=== PATIENT | female | born 1970 | race Caucasian/White ===

== ENCOUNTER 2022-03-08 19:13 | Emergency (ER) | payer MEDICAID, OTHER ==
[~2022-03-08] VITALS: Ht 162.6 cm; Wt 62.7 kg
[~2022-03-08 19:13] MED LIST: PREN-385 PO
[2022-03-08 19:49] VITALS: BP 160/91
--- NOTE | 2022-03-08 21:33 | NUR ---
ERMD EXAMINING PT
[2022-03-08] MEDS ORDERED: cefTRIAXone 1,000 MG in LIDOCAINE MPF 1% 2.1 ML IM ONE (22:10)
[2022-03-08] MEDS ORDERED: CEPH-588 PO (22:12)
[2022-03-08] MEDS ORDERED: LIDOCAINE MPF 1% 5 ML ONE (22:17)
[2022-03-08] MEDS ORDERED: cefTRIAXone 1,000 MG VIAL ONE (22:17)
[2022-03-08 22:23] LABS: BILIRUBIN,URINE NEGATIVE (NEGATIVE); BLOOD, URINE 3+ (NEGATIVE); COLOR,URINE RED (YELLOW); LEUKOCYTE ESTERASE ,URINE TRACE (NEGATIVE); NITRITE, URINE NEGATIVE (NEGATIVE); PH,URINE 6.5 (5.0-9.0); UGLUCOSE NEGATIVE (NEGATIVE)
--- NOTE | 2022-03-08 22:23 | NUR ---
pt medicated and taken to lobby.
[2022-03-08 22:24] LABS: APPEARANCE,URINE HAZY (CLEAR)
[2022-03-08 22:47] LABS: RBC,URINE TOO NUMEROUS TO COUN /HPF (0-5); WBC,URINE 0-5 /HPF (0-5)
[2022-03-08 22:57] LABS: BASOPHILS % (AUTO) 0.3 % (0.0-2.0); EOSINOPHILS # (AUTO) 0.1 K/uL (0-0.4); EOSINOPHILS % (AUTO) 1.1 % (0.0-4.0); HEMATOCRIT 39.5 % (36-48); HEMOGLOBIN 13.4 g/dL (12.0-16.0); LYMPHOCYTES # (AUTO) 1.7 K/uL (2.5-16.5); LYMPHOCYTES % (AUTO) 22.9 % (20.5-51.1); MEAN CORPUSCULAR HEMOGLOBIN 28 pg (27-31); MEAN CORPUSCULAR HGB CONC 34 g/dL (33-37); MONOCYTES # (AUTO) 0.5 K/uL (0.8-1.0); NEUTROPHILS # (AUTO) 5.1 K/uL (1.8-7.7); NEUTROPHILS % (AUTO) 68.7 % (42.2-75.2); PLATELET COUNT (AUTO) 243 K/uL (140-450); RED BLOOD CELL COUNT(AUTO) 4.87 MIL/uL (4.20-5.40); RED CELL DISTRIBUTION WIDTH 13.4 % (11.6-13.7); WHITE BLOOD COUNT (AUTO) 7.4 K/uL (4.8-10.8)
[2022-03-08 23:26] LABS: ALBUMIN 3.9 g/dL (3.4-5.0); ANION GAP 13.4 (8-16); CARBON DIOXIDE 26.6 mmol/L (21-32); TOTAL BILIRUBIN 0.7 mg/dL (0.0-1.0)
--- NOTE | 2022-03-09 00:15 | NUR ---
pt to bed 07.
--- NOTE | 2022-03-09 00:26 | NUR ---
iv to bed left ac [address]g estab[address] ct made aware.
--- NOTE | 2022-03-09 00:26 | NUR ---
PT TAKEN TO CT VIA WC
--- NOTE | 2022-03-09 00:44 | NUR ---
51/F BIB SELF C/C HEMATURIA AND ABD PAIN X3 WEEKS. PER PATIENT SHE HAS BEEN HAVING BURNING WHILE URINATING AND BRITANY FLANK PAIN. PAIN IS 9/10 AND SHARP. PATIENT WAS PRESCRIBED BACTRIM FOR UTI BY PCP, BUT PATIENT REPORTS NO RELIEF. PATIENT IS AAOX4 AND AMBULATORY. PATIENT RR EVEN AND UNLABORED. PATIENT APPEARS TO BE GUARDING ABD WITH FACIAL GRIMACING. PATIENT PLACED IN BED AND GOWN. BED LOW AND LOCKED. SIDE RAILS UP FOR SAFETY. ALL NEEDS MET. DENIES PMHX, RX NKA
[2022-03-09] MEDS ORDERED: MAGNESIUM CITRATE 300 ML BTL PO ONE (01:25)
--- NOTE | 2022-03-09 01:40 | NUR ---
US AT BEDSIDE
[2022-03-09 03:05] VITALS: BP 158/87
--- NOTE | 2022-03-09 03:05 | NUR ---
Patient discharged with v/s stable. Written and verbal after care instructions given and explained. Patient verbalized understanding. Ambulatory with steady gait. All questions addressed prior to discharge. Advised to follow up with PMD.
== END 2022-03-09 03:05 | disposition home or self-care (01) ==
LOC: MED 19:13
DX: R31.9 Hematuria, unspecified (principal); R10.9 Unspecified abdominal pain; Z79.899 Other long term (current) drug therapy
CPT/HCPCS: 36415; 74177; 76770; 80053; 81001; 81025; 85025; 87086; 96372; 99285; J0696; J2001; Q0092; Q9967